=== PATIENT | male | born 1975 | race Two or more races ===

== ENCOUNTER 2021-07-03 18:16 | Emergency (ER) | payer SELFPAY ==
[2021-07-03] MEDS ORDERED: Acetaminophen/oxyCODONE 325-5 MG Tab PO ONE (18:44)
--- NOTE | 2021-07-03 20:06 | CR ---
Indication: Fall off ladder, pain to whole right arm. Technique: Right elbow 3 views. Comparison: None. Findings: Suboptimal positioning on the lateral view. No acute fracture or dislocation. Cortical irregularity of the proximal ulna likely related to prior trauma. No elbow joint effusion. Soft tissues are unremarkable. Impression: No acute findings. Dictated by Sparkle Leija MD @ 07/03/2021 8:06:09 PM (Electronically Signed)
--- NOTE | 2021-07-03 20:11 | CR ---
Indication: Fall off ladder, pain to whole right arm. Technique: Right humerus 2 views. Comparison: None. Findings: The humerus is displaced inferiorly and medially relative to the glenoid compatible with an anterior shoulder dislocation. No acute fracture identified. Soft tissues are unremarkable. Impression: Anterior shoulder dislocation. Dictated by Sparkle Leija MD @ 07/03/2021 8:09:58 PM (Electronically Signed)
--- NOTE | 2021-07-03 20:11 | CR ---
Indication: Fall off ladder, pain to whole right arm. Technique: Right shoulder 2 views. Comparison: None. Findings: The humerus is displaced inferiorly and medially relative to the glenoid compatible with an anterior shoulder dislocation. No acute fracture identified. The right lung is clear. Soft tissues are unremarkable. Impression: Anterior shoulder dislocation. Dictated by Sparkle Leija MD @ 07/03/2021 8:08:26 PM (Electronically Signed)
[2021-07-03] MEDS ORDERED: Morphine 4 MG/ML VIAL IVPUSH ONE (20:31)
[2021-07-03] MEDS ORDERED: Propofol 200 MG/20 ML SDV ONE (20:35)
[2021-07-03] MEDS ORDERED: Lidocaine 2% 5 ML SDV ONE (20:35)
--- NOTE | 2021-07-03 20:41 | EDM.PDOC ---
ED HPI GENERAL MEDICAL PROBLEM - General Chief Complaint: Upper Extremity Injury/Pain Stated Complaint: RT ARM INJURY Time Seen by Provider: 07/03/21 19:11 - History of Present Illness INITIAL COMMENTS - FREE TEXT/NARRATIVE: *All conversations had with educational sign language interpreter CHIEF COMPLAINT(S): Right arm pain HISTORY OF PRESENT ILLNESS: This is a 46-year-old man without any significant past medical history who comes to the emergency department with a chief complaint of right arm pain. The patient states that he was on a ladder and fell approximately 8 feet onto his right shoulder. He states that he is currently experiencing 10 out of 10 pain located in his right arm. He denies any numbness, tingling, or weakness. He states that any movement seems to make it worse. There are no relieving factors. He has not yet tried any pain medication. He denies any head injury, loss of consciousness. He denies any chest pain, shortness of breath, abdominal pain. He states that it was purely a mechanical fall. He denies any neck pain or back pain. He denies any bowel incontinence, urinary continence or saddle anesthesia. REVIEW OF SYSTEMS: Constitutional: Denies fever, chills. Eyes: Denies eye pain Ears, Nose, Mouth, & Throat: Denies earache Cardiovascular: Denies chest pain Respiratory: Denies shortness of breath Gastrointestinal: Denies Nausea, vomiting, diarrhea, hematochezia. Genitourinary: Denies hematuria Skin:Denies a rash MSK: Positive for right shoulder and arm pain Neurological: Denies blurred vision, numbness, tingling, weakness psychiatric: Denies depression PAST MEDICAL HISTORY: As per history of present illness and as reviewed below otherwise noncontributory. SURGICAL HISTORY: As per history of present illness and as reviewed below otherwise noncontributory. SOCIAL HISTORY: As per history of present illness and as reviewed below otherwise noncontributory. FAMILY HISTORY: As per history of present illness and as reviewed below otherwise noncontributory. EXAMINATION OF ORGAN SYSTEMS/BODY AREAS: Constitutional: Blood pressure is 193/81, heart rate 69, respiratory rate 16 with an oxygen saturation of 97% on room air. Temperature 35.9 General: Well-appearing man who is in no acute distress Psychiatric: Appropriate mood and affect. Head: Normocephalic, atraumatic Eyes: No scleral icterus or conjunctival erythema pupils are equal round and reactive to light. Extraocular movements intact ENMT: Moist mucous membranes. No pharyngeal erythema Cardiovascular: Regular, rate, and rhythm. No gallops, murmurs, or rubs. Bilateral upper extremity pulses symmetric and intact. No peripheral edema. No JVD. Respiratory: Lungs clear to auscultation bilaterally. No wheezes, rales, or rhonchi. Gastrointestinal: Soft, non-tender, non-distended. Normoactive bowel sounds Genitourinary: No suprapubic tenderness Musculoskeletal: Limited range of motion of the right shoulder. There appears to be asymmetry between the left and right shoulder anteriorly. Patient can fully flex and extend at the elbow wrist and hand. No obvious deformity. Skin: No lesions or abrasions. Neurological: Alert, GCS 15 distal sensation is intact MEDICAL DECISION MAKING AND COURSE IN THE ED WITH INTERPRETATION/REVIEW OF DIAGNOSTIC STUDIES: This is a 46-year-old man without any significant past medical history who comes to the emergency department with mechanical fall with right shoulder pain with some asymmetry suggesting possible shoulder dislocation. Obtain a shoulder, elbow, and humeral x-ray for evaluation. We will provide the patient with pain relief. I do not believe any other labs or imaging are indicated DDx: Fracture, dislocation The radiological images were viewed by myself along with reading the report from the radiologist. Right elbow x-ray does not reveal any fracture or dislocation. Right humeral x-ray reveals an anterior shoulder dislocation without any fracture. Right shoulder x-ray reveals an anterior shoulder dislocation without fracture. After imaging I did discuss results with the patient. At this time I did discuss that I would like to reduce the patient's dislocation. He was amenable to this plan. We did contact anesthesia for procedural sedation. Dislocation reduction Procedure Note Performed by: Myself with aoc aadc operations staff officer Consent: Verbal consent obtained. Risks and benefits: risks, benefits and alternatives were discussed Consent given by: Patient Patient understanding: Patient states understanding of the procedure being performed Patient consent: Patient understanding of the procedure matches consent given Patient identity confirmed: verbally with patient and arm band Time out: Immediately prior to procedure a "time out" was called to verify the correct patient, procedure, equipment, user support analyst supervisor and site/side marked as required. Location details: Right shoulder Reduction Procedure: axial pull and closed manipulation of right shoulder dislocation Results: Post reduction alignment improved Complication: Tolerated well without complication. <2sec RURAL ROUTE CARRIER. Tendons intact. Post-reduction Examination: Normal sensation over the deltoid. Distal sensation is intact. Polymer Engineer strength equal bilaterally. Capillary refill less than 2 seconds Post Reduction Imaging: Post reduction reveals normal alignment of the right shoulder without any evidence of dislocation. We did place the patient in a shoulder sling and discussed the need to follow-up with orthopedics. He was given strict return precautions. The patient was amenable discharge and had no further questions DISPOSITION: The patient was discharged home in stable condition. The patient will follow up with orthopedics in 5 to 7 days CONDITION: Fair PROCEDURES: Right shoulder dislocation reduction FINAL IMPRESSION(S)/DIAGNOSES: 1. Acute right shoulder dislocation status post reduction Wili Villegas M.D. right arm Pain Score (Numeric/FACES): 10 - Related Data Allergies Allergy/AdvReac Type Severity Reaction Status Date / Time No Known Allergies Allergy Verified 07/03/21 18:30 Home Meds: Home Meds . [No Known Home Meds] 07/03/21 [History] Past Medical History - Past Health History Medical/Surgical History: Denies Medical/Surgical History - Infectious Disease History Infectious Disease History: Reports: None Social & Family History - Family History Family Medical History: No Pertinent Family History - Tobacco Use Tobacco Use Status *Q: Never Tobacco User - Recreational Drug Use Recreational Drug Use: No Review of Systems - Review of Systems Review Of Systems: See Below ED EXAM, GENERAL - Physical Exam Exam: See Below Course - Vital Signs Last Recorded V/S: Last Vital Signs Temp 35.9 C L 07/03/21 18:27 Pulse 69 07/03/21 18:27 Resp 16 07/03/21 18:27 BP 193/81 H 07/03/21 18:27 Pulse Ox 97 07/03/21 18:27 - Orders/Labs/Meds Orders: Active Orders 24 hr Category Date Time Status DME for Discharge [COMM] Stat Oth 07/03/21 20:19 Ordered Meds: Medications Discontinued Medications Generic Name Dose Route Start Last Admin Trade Name Freq PRN Reason Stop Dose Admin Lidocaine Confirm 07/03/21 20:35 Lidocaine 2% 5 Ml Sdv Administered 07/03/21 20:36 Dose 5 ml .ROUTE .STK-MED ONE Morphine Sulfate 4 mg 07/03/21 20:31 07/03/21 20:36 Morphine 4 Mg/Ml Vial IVPUSH 07/03/21 20:32 4 mg ONETIME ONE Administration Oxycodone/Acetaminophen 1 tab 07/03/21 18:44 07/03/21 19:11 Acetaminophen/Oxycodone 325-5 Mg Tab PO 07/03/21 18:45 1 tab ONETIME ONE Administration Propofol Confirm 07/03/21 20:35 Propofol 200 Mg/20 Ml Sdv Administered 07/03/21 20:36 Dose 400 mg .ROUTE .STK-MED ONE Departure - Departure Time of Disposition: 22:20 Disposition: Home, Self-Care 01 Condition: Fair Clinical Impression: Dislocation of right shoulder joint - Discharge Information *PRESCRIPTION DRUG MONITORING PROGRAM REVIEWED*: No *COPY OF PRESCRIPTION DRUG MONITORING REPORT IN PATIENT EBEN: No Instructions: How to use a Sling, [id number], Shoulder Dislocation, [id number] Referrals: PCP,None [Primary Care Provider] - Forms: ED Department Discharge Additional Instructions: Hoy fuiste evaluado de forma emergente. En sanjuana momento s jorge shelby dislocacin del hombro derecho. Podremos volver a colocarlo en galvin lugar. Le recomiendo que lo mantenga en el cabestrillo y tome Tylenol y Motrin y yan un seguimiento con ortopedia dentro de 5 a 7 gutiérrez. Comunquese con ellos al nmero que figura a continuacin. Si tiene algn sntoma que empeora, bryce un dolor que empeora, vuelve a aparecer. Me gustara que regresara al departamento de emergencias. Por favor use: Tylenol 500-1000 mg cada 6 horas (NO TOME MS DE 4000 mg en 1 da) Ibuprofeno 400 mg cada 6 horas (chris con comida ya que puede causar lceras, malestar gastrointestinal) Programa de ejemplo: 8:00 a. M. (Tylenol 500-1000 mg) 11:00 a. M. (Ibuprofeno 400 mg) 2:00 p. M. (Tylenol 500-1000 mg) 5:00 p. M. (Ibuprofeno 400 mg) Hiele el jose 20 minutos 4 veces al da [facility] [address] [place] [address], [address] [place] [address] Se informa al paciente de los resultados de galvin evaluacin y diagnstico y se responden todas las preguntas. Se les carlos instrucciones de zee y precauciones de devolucin. El paciente est estable para el zee. El paciente afirma que entiende y est de acuerdo con el plan y que volver si chema sntomas empeoran o si tiene alguna inquietud nueva. La siguiente informacin se satnam a los pacientes atendidos en el departamento de emergencias que estn siendo dados de zee a galvin hogar. Esta informacin es para describir chema opciones para la atencin de seguimiento. Proporcionamos a todos los pacientes atendidos en nuestro departamento de emergencias shelby derivacin de seguimiento. La necesidad de seguimiento, as bryce el momento y las circunstancias, varan segn los detalles de galvin visita al departamento de emergencias. Si no tiene un mdico de atencin primaria en el personal, le proporcionaremos shelby referencia. Siempre le recomendamos que se ponga en contacto con galvin mdico personal despus de shelby visita al servicio de urgencias para informarle de las circunstancias de la visita y para realizar un seguimiento con l y / o la necesidad de cualquier derivacin a un especialista consultor. El departamento de emergencias tambin lo derivar a un especialista cuando sea apropiado. Esta remisin le asegura que tiene la oportunidad de recibir atencin de seguimiento con un especialista. Todas estas medidas se clayton en un esfuerzo por brindarle shelby atencin ptima, que incluye galvin seguimiento. En todas las circunstancias, siempre lo alentamos a que se comunique con galvin mdico privado, quien sigue siendo un recurso para coordinar galvin atencin. Cuando llame para recibir atencin de seguimiento, informe al consultorio que sanjuana seguimiento es de galvin visita reciente a la ángel de emergencias. Si por alguna razn se le niega el seguimiento, comunquese con el Departamento de Emergencias del [facility] al y solicite hablar con la enfermera a cargo del departamento de emergencias. Sepsis Event Note (ED) - Evaluation Sepsis Screening Result: No Definite Risk - Focused Exam Vital Signs: Vital Signs Temp Pulse Resp BP Pulse Ox 07/03/21 18:27 35.9 C L 69 16 193/81 H 97 - My Orders Last 24 Hours: My Active Orders 07/03/21 20:19 DME for Discharge [COMM] Stat - Assessment/Plan Last 24 Hours: My Active Orders 07/03/21 20:19 DME for Discharge [COMM] Stat
--- NOTE | 2021-07-03 21:45 | PCM.SN.2 ---
- Free Text/Narrative Note: Consulted for sedation for closed reduction of R shoulder. Anesthesia consent obtained. Pt. last ate at 1300. NKDA. Monitors on, O2 via N/C at 3 L/min. Emergency equipment available. Procedure time out at 2114. Lidocaine 80 mg given IV followed by propofol 200 mg total in incremental doses. Pt. tolerated procedure well. Stayed with patient and monitored vital signs until awake. X- rays obtained.
--- NOTE | 2021-07-03 23:03 | CR ---
INDICATION: Postreduction. TECHNIQUE: Two views. COMPARISON: Earlier today. IMPRESSION: Previously noted anterior inferior dislocation has been reduced. No acute fracture is identified. Dictated by Emre Snider MD @ 07/03/2021 11:02:08 PM Dictated by: Emre Snider MD @ 07/03/2021 23:02:16 (Electronically Signed)
== END 2021-07-03 22:50 | disposition home or self-care (01) ==
LOC: MW.ED 18:16
DX: S43.014A Anterior dislocation of right humerus, initial encounter (principal); W11.XXXA Fall on and from ladder, initial encounter
CPT/HCPCS: 23650; 73030; 73060; 73080; 96374; 99283; A9270; J2270; J2704